=== PATIENT | male | born 1995 | race Caucasian/White ===

== ENCOUNTER 2019-05-28 00:41 | Emergency (ER) | payer SELFPAY ==
[2019-05-28] MEDS ORDERED: TETRACAINE HCL 0.5% 4ML OPTH ONE (00:59)
[2019-05-28] MEDS ORDERED: HYDROCODONE/APAP 10/325 TAB ONE (01:01)
[2019-05-28] MEDS ORDERED: TOBRAMYCIN SULF 0.3% OPTH OINT ONE (01:01)
[2019-05-28] MEDS ORDERED: FLUORESCEIN SODIUM 1 MG/WRAP ONE (01:01)
[2019-05-28] MEDS ORDERED: NEO/POLY/DEX OPTH 5 ML BOT ONE (01:03)
[2019-05-28] MEDS ORDERED: NEO/POLY/DEX OPTH 3.5 GM TUBE ONE (01:05)
[2019-05-28] MEDS ORDERED: CYCLOPENTOLATE 2% OPTH 2 ML ONE (01:28)
--- NOTE | 2019-05-28 01:48 | ER ---
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 States it feels as if he has sandpaper in them. Transition of care: patient was not received from another setting of care. Onset of symptoms was May 27, 2019. Risk Assessment: Do you want to hurt yourself or someone else? Patient reports no desire to harm self or others. Initial Sepsis Screen: Does the patient meet any 2 criteria? No. Patient's initial sepsis screen is negative. Does the patient have a suspected source of infection? No. Patient's initial sepsis screen is negative. Care prior to arrival: Medication(s) given: Tylenol, 1000 mg, at 0000. 00:45 Method Of Arrival: Ambulatory 00:45 Acuity: CARLOS 4 Triage Assessment: 00:56 General: Appears uncomfortable, slender, Behavior is calm, cooperative, appropriate for age. Pain: Complains of pain in right eye and left eye Pain currently is 10 out of 10 on a pain scale. Quality of pain is described as burning, Pain began today Is continuous. EENT: Eyes are tearing on right eye and left eye Sclera/Cornea are reddened in right eye and left eye Reports pain in right eye and left eye. Neuro: Level of Consciousness is awake, alert, obeys commands, Oriented to person, place, time, situation, Appropriate for age. Cardiovascular: No deficits noted. Respiratory: No deficits noted. GI: No deficits noted. : No deficits noted. Derm: Skin is pink, warm \T\ dry. Musculoskeletal: Circulation, motion, and sensation intact. Capillary refill < 3 seconds, Range of motion: intact in all extremities. Historical: - Allergies: 00:56 No Known Allergies; fc - Home Meds: 00:56 None [Active]; fc - PMHx: 00:56 None; fc - PSHx: 00:56 hip surg; fc - Immunization history:: Last tetanus immunization: unknown. - Social history:: Smoking status: Patient/guardian denies using tobacco, Patient/guardian denies using alcohol, street drugs. - Ebola Screening: : Patient negative for fever greater than or equal to 101.5 degrees Fahrenheit, and additional compatible Ebola Virus Disease symptoms Patient denies exposure to infectious person Patient denies travel to an Ebola-affected area in the 21 days before illness onset. - Family history:: not pertinent. Screenin:40 Abuse screen: Denies threats or abuse. Nutritional screening: No deficits noted. Tuberculosis screening: No symptoms or risk factors identified. Fall Risk None identified. Vital Signs: 00:40 BP 125 / 84; Pulse 58; Resp 18; Temp 97.6(O); Pulse Ox 100% on R/A; Weight 99.79 kg fc (R); Height 6 ft. 0 in. (182.88 cm) (R); Pain 10/10; 00:40 Body Mass Index 29.84 (99.79 kg, 182.88 cm) ED Course: 00:40 Arm band placed on Patient placed in an exam room, on a stretcher. fc 00:40 Patient has correct armband on for positive identification. Bed in low position. Call light in reach. Side rails up X 1. Pulse ox on. NIBP on. 00:40 No provider procedures requiring assistance completed. fc 00:44 Patient arrived in ED. cl3 00:53 Chavo Michael MD is Attending Physician. [facility] 00:55 Triage completed. 00:55 Chayito Ramsey RN is Primary Nurse. aa1 01:38 Tito Coombs MD is Referral Physician. florentino Administered Medications: 01:00 Drug: Tetracaine Drops 0.5 % 1 drops Route: Ophthalmic; Site: both eyes; aa1 01:04 Drug: [place] 10 mg-325 mg 1 tabs Route: PO; aa1 01:25 Drug: Maxitrol 1 application Route: Ophthalmic; Site: both eyes; aa1 01:30 Drug: Cyclogyl Drops (1 %) 1 drops Route: Ophthalmic; Site: both eyes; aa1 01:36 Not Given (Other Intervention Used): TobraDEX Drops (0.3 %-0.1 %) 2 drops Ophthalmic aa1 once Outcome: 01:37 Discharge ordered by MD. good 01:50 Patient left the ED. ch Signatures: Bailee Dimas RN RN Chayito Jacome RN RN aa1 Chavo Michael MD MD cha Chretien, Felicia, RN RN Lilly Villasenor cl3
--- NOTE | 2019-05-28 01:49 | EDPHYS ---
Physician Documentation [facility] Name: John Saldana Age: 23 yrs Sex: Male : 1995 Arrival Date: 05/28/2019 Time: 00:44 Bed 7 Private MD: ED Physician Chavo Michael HPI: 05/28 01:33 This 23 yrs old Male presents to ER via Ambulatory with complaints of Burn to florentino eyes. 01:33 The patient is experiencing blurred vision, pain, redness, The patient [facility]. Onset: The symptoms/episode began/occurred yesterday. Duration: the symptoms are intermittent. Aggravated by blinking, closing eye, light, opening eye, Alleviated by nothing. Associated signs and symptoms: Pertinent positives: None. Pertinent negatives: None. Patient does not utilize any form of vision correction. Severity of symptoms: At their worst the symptoms were mild moderate in the emergency department the symptoms are unchanged. The patient has not experienced similar symptoms in the past. Historical: - Allergies: 00:56 No Known Allergies; fc - Home Meds: 00:56 None [Active]; fc - PMHx: 00:56 None; fc - PSHx: 00:56 hip surg; fc - Immunization history:: Last tetanus immunization: unknown. - Social history:: Smoking status: Patient/guardian denies using tobacco, Patient/guardian denies using alcohol, street drugs. - Ebola Screening: : Patient negative for fever greater than or equal to 101.5 degrees Fahrenheit, and additional compatible Ebola Virus Disease symptoms Patient denies exposure to infectious person Patient denies travel to an Ebola-affected area in the 21 days before illness onset. - Family history:: not pertinent. ROS: 01:33 Constitutional: Negative for fever, chills, and weight loss, ENT: Negative for injury, florentino pain, and discharge, Neck: Negative for injury, pain, and swelling, Cardiovascular: Negative for chest pain, palpitations, and edema, Respiratory: Negative for shortness of breath, cough, wheezing, and pleuritic chest pain, Abdomen/GI: Negative for abdominal pain, nausea, vomiting, diarrhea, and constipation, Back: Negative for injury and pain, : Negative for injury, bleeding, discharge, and swelling, MS/Extremity: Negative for injury and deformity, Skin: Negative for injury, rash, and discoloration, Neuro: Negative for headache, weakness, numbness, tingling, and seizure. 01:33 Eyes: Positive for pain, photophobia, redness. Exam: 01:33 Constitutional: This is a well developed, well nourished patient who is awake, alert, florentino and in no acute distress. Head/Face: Normocephalic, atraumatic. ENT: Nares patent. No nasal discharge, no septal abnormalities noted. Tympanic membranes are normal and external auditory canals are clear. Oropharynx with no redness, swelling, or masses, exudates, or evidence of obstruction, uvula midline. Mucous membranes moist. Neck: Trachea midline, no thyromegaly or masses palpated, and no cervical lymphadenopathy. Supple, full range of motion without nuchal rigidity, or vertebral point tenderness. No Meningismus. Chest/axilla: Normal chest wall appearance and motion. Nontender with no deformity. No lesions are appreciated. Cardiovascular: Regular rate and rhythm with a normal S1 and S2. No gallops, murmurs, or rubs. Normal PMI, no JVD. No pulse deficits. Respiratory: Lungs have equal breath sounds bilaterally, clear to auscultation and percussion. No rales, rhonchi or wheezes noted. No increased work of breathing, no retractions or nasal flaring. Abdomen/GI: Soft, non-tender, with normal bowel sounds. No distension or tympany. No guarding or rebound. No evidence of tenderness throughout. Back: No spinal tenderness. No costovertebral tenderness. Full range of motion. Male : Normal genitalia with no discharge or lesions. Skin: Warm, dry with normal turgor. Normal color with no rashes, no lesions, and no evidence of cellulitis. MS/ Extremity: Pulses equal, no cyanosis. Neurovascular intact. Full, normal range of motion. Neuro: Awake and alert, GCS 15, oriented to person, place, time, and situation. Cranial nerves II-XII grossly intact. Motor strength 5/5 in all extremities. Sensory grossly intact. Cerebellar exam normal. Normal gait. Psych: Awake, alert, with orientation to person, place and time. Behavior, mood, and affect are within normal limits. 01:33 Eyes: Periorbital structures: appear normal, no acute changes, no abrasion, no cellulitis, no contusion, no ecchymosis, no erythema, no laceration, no swelling, Pupils: no acute changes, equal, round, and reactive to light and accomodation, Extraocular movements: intact throughout, Conjunctiva: injected, Corneas: are normal, no acute changes, Sclera: no appreciated abnormality, no acute changes, Anterior chamber: normal, no acute changes, Lids and lashes: appear normal, no acute changes. Vital Signs: 00:40 BP 125 / 84; Pulse 58; Resp 18; Temp 97.6(O); Pulse Ox 100% on R/A; Weight 99.79 kg fc (R); Height 6 ft. 0 in. (182.88 cm) (R); Pain 10/10; 00:40 Body Mass Index 29.84 (99.79 kg, 182.88 cm) MDM: 00:53 Patient medically screened. [facility] 05/28 00:55 Order name: Eye Tray; Complete Time: 01:36 [facility] 05/28 00:55 Order name: Fluoresene Opth strip; Complete Time: 01:04 [facility] Administered Medications: 01:00 Drug: Tetracaine Drops 0.5 % 1 drops Route: Ophthalmic; Site: both eyes; aa1 01:04 Drug: [place] 10 mg-325 mg 1 tabs Route: PO; aa1 01:25 Drug: Maxitrol 1 application Route: Ophthalmic; Site: both eyes; aa1 01:30 Drug: Cyclogyl Drops (1 %) 1 drops Route: Ophthalmic; Site: both eyes; aa1 01:36 Not Given (Other Intervention Used): TobraDEX Drops (0.3 %-0.1 %) 2 drops Ophthalmic aa1 once Disposition: 05/28/19 01:37 Discharged to Home. Impression: Keratitis. - Condition is Stable. - Discharge Instructions: Ultraviolet Keratitis, Ultraviolet Keratitis, [id number]. - Prescriptions for Maxitrol 3.5 mg/g- 10,000 unit/g-0.1 % Ophthalmic ointment - apply 1 inch ribbon by OPHTHALMIC route 4 times per day; 3.5 gram. Tylenol- Codeine #3 300-30 mg Oral Tablet - take 2 tablets by ORAL route every 6 hours As needed; 20 tablet. - Medication Reconciliation Form, Thank You Letter, Antibiotic Education, Prescription Opioid Use form. - Follow up: Private Physician; When: 2 - 3 days; Reason: Recheck today's complaints, Continuance of care, Re-evaluation by your physician. Follow up: Tito Coombs MD; When: Today; Reason: Recheck today's complaints, Continuance of care, Re-evaluation by your physician. - Problem is new. - Symptoms have improved. Signatures: Bailee Dimas RN RN Chayito Ramsey RN RN aa1 Chavo Michael MD MD cha Chretien, Felicia, RN RN Corrections: (The following items were deleted from the chart) 01:38 01:37 05/28/2019 01:37 Discharged to Home. Impression: Keratitis. Condition is Stable. florentino Forms are Medication Reconciliation Form, Thank You Letter, Antibiotic Education, Prescription Opioid Use. Follow up: Private Physician; When: 2 - 3 days; Reason: Recheck today's complaints, Continuance of care, Re-evaluation by your physician. Problem is new. Symptoms have improved. [facility] 01:50 01:38 05/28/2019 01:37 Discharged to Home. Impression: Keratitis. Condition is Stable. Forms are Medication Reconciliation Form, Thank You Letter, Antibiotic Education, Prescription Opioid Use. Follow up: Private Physician; When: 2 - 3 days; Reason: Recheck today's complaints, Continuance of care, Re-evaluation by your physician. Follow up: Tito Coombs; When: Today; Reason: Recheck today's complaints, Continuance of care, Re-evaluation by your physician. Problem is new. Symptoms have improved. [facility]
[2019-05-28] MEDS ORDERED: ONDANSETRON 4 MG/2 ML VIAL ONE (02:52)
== END 2019-05-28 01:50 | disposition home or self-care (01) ==
LOC: ER 00:41
DX: H16.9 Unspecified keratitis (principal)
CPT/HCPCS: 99283; J2405

== ENCOUNTER 2020-08-10 18:58 | Emergency (ER) | payer SELFPAY ==
[2020-08-10] MEDS ORDERED: LIDOCAINE 1% W/EPI 1:100,000 MDV 50 ML VIAL ONE (19:38)
[2020-08-10] MEDS ORDERED: HYDROCODONE/APAP 10/325 TAB ONE (19:38)
[2020-08-10] MEDS ORDERED: DIAZEPAM 5 MG TABLET ONE (19:38)
--- NOTE | 2020-08-10 20:14 | ER ---
Nurse's Notes [facility] Name: John Saldana Age: 24 yrs Sex: Male : 1995 Arrival Date: 08/10/2020 Time: 19:01 Bed 23 Private MD: Diagnosis: Cutaneous abscess of back [any part, except buttock] Presentation: 08/10 19:03 Chief complaint: Patient states: I have a bump on my back that start oozing 2 days ago. jb4 It has progressively gotten worse, now it is getting larger, it is hot to the touch and oozing. 19:03 Coronavirus screen: Client denies travel out of the [place] in the last 14 days. At this jb4 time, the client does not indicate any symptoms associated with coronavirus-19. Ebola Screen: No symptoms or risks identified at this time. Initial Sepsis Screen: Does the patient meet any 2 criteria? No. Patient's initial sepsis screen is negative. Does the patient have a suspected source of infection? No. Patient's initial sepsis screen is negative. Risk Assessment: Do you want to hurt yourself or someone else? Patient reports no desire to harm self or others. Onset of symptoms was August 08, 2020. Transition of care: patient was not received from another setting of care. 19:03 Method Of Arrival: Ambulatory jb4 19:03 Acuity: CARLOS 3 jb4 Historical: - Allergies: 19:03 No Known Allergies; jb4 - Home Meds: 19:03 None [Active]; jb4 - PMHx: 19:03 None; jb4 - PSHx: 19:03 Hip; jb4 - Immunization history:: Adult Immunizations up to date. - Social history:: Smoking status: Patient denies any tobacco usage or history of. Patient/guardian denies using alcohol, street drugs. Screenin:03 Abuse screen: Denies threats or abuse. Nutritional screening: No deficits noted. jb4 Tuberculosis screening: No symptoms or risk factors identified. Fall Risk None identified. Assessment: 19:03 General: Appears in no apparent distress. uncomfortable, Behavior is calm, cooperative, jb4 appropriate for age. Pain: Complains of pain in right scapular area Pain does not radiate. Pain currently is 7 out of 10 on a pain scale. Quality of pain is described as dull, tender, Pain began 2-3 days ago. Neuro: Level of Consciousness is awake, alert, obeys commands, Oriented to person, place, time, situation. Cardiovascular: Patient's skin is warm and dry. Respiratory: Airway is patent Respiratory effort is even, unlabored, Respiratory pattern is regular, symmetrical. GI: No signs and/or symptoms were reported involving the gastrointestinal system. : No signs and/or symptoms were reported regarding the genitourinary system. EENT: No signs and/or symptoms were reported regarding the EENT system. Derm: Skin is intact, Skin is pink, warm \T\ dry. Abscess located on right scapular area is golf ball sized, has no drainage, is hot to touch, is red, is raised. Musculoskeletal: Circulation, motion, and sensation intact. Range of motion: intact in all extremities. 19:44 Reassessment: Provider at the bedside explaining I\T\D procedure, Provider administering jb4 Lidocaine. 20:29 Reassessment: Patient appears in no apparent distress at this time. Patient and/or jb4 family updated on plan of care and expected duration. Pain level reassessed. Patient is alert, oriented x 3, equal unlabored respirations, skin warm/dry/pink. Patient states feeling better. Vital Signs: 19:03 BP 135 / 73; Pulse 106; Resp 16; Temp 100.5(O); Pulse Ox 95% on R/A; Weight 117.93 kg jb4 (R); Height 6 ft. 0 in. (182.88 cm) (R); Pain 7/10; 20:29 BP 136 / 82; Pulse 86; Resp 16; Pulse Ox 98% on R/A; jb4 19:03 Body Mass Index 35.26 (117.93 kg, 182.88 cm) jb4 ED Course: 19:01 Patient arrived in ED. rg4 19:03 Erick Rdz, SOUTH is Primary Nurse. jb4 19:03 Benja Wolfe PA is PHCP. jmm 19:03 Arm band placed on right wrist. jb4 19:03 Patient has correct armband on for positive identification. Placed in gown. Bed in low jb4 position. Call light in reach. Side rails up X 1. Pulse ox on. NIBP on. 19:04 Mahesh Yarbrough MD is Attending Physician. [facility] 19:18 Triage completed. jb4 19:47 Assist provider with I \T\ D: of an abscess on Set up I\T\D tray. Performed by Benja mae 4 [facility]ION. 20:29 Patient did not have IV access during this emergency room visit. jb4 Administered Medications: 19:28 Drug: Valium 5 mg Route: PO; jb4 20:14 Follow up: Response: No adverse reaction; Pain is decreased jb4 19:29 Drug: [place] 10 mg-325 mg 1 tabs Route: PO; jb4 20:14 Follow up: Response: No adverse reaction; Pain is decreased; RASS: Alert and Calm (0) jb4 19:45 Drug: Lidocaine-Epinephrine -1%: (1:100,000) 20 ml {Note: Administered by ER jb4 provider..} Volume: 20 ml; Route: Infiltration; 20:14 Follow up: Response: No adverse reaction jb4 20:28 Drug: Bactrim (160 mg-800 mg (DS) 1 tablet Route: PO; jb4 20:28 Follow up: Response: Medication administered at discharge. jb4 20:28 Drug: Doxycycline 100 mg Route: PO; jb4 20:29 Follow up: Response: Medication administered at discharge. jb4 Outcome: 20:13 Discharge ordered by . [facility] 20:29 Discharged to home ambulatory, with friend. jb4 20:29 Condition: stable 20:29 Discharge instructions given to patient, Instructed on discharge instructions, follow up and referral plans. medication usage, Demonstrated understanding of instructions, follow-up care, medications, Prescriptions given X 3. 20:30 Patient left the ED. jb4 Signatures: Benja Wolfe PA PA jmm Garcia, Rubi rg4 Erick Rdz, RN RN jb4
--- NOTE | 2020-08-10 20:14 | EDPHYS ---
Physician Documentation [facility] Name: John Saldana Age: 24 yrs Sex: Male : 1995 Arrival Date: 08/10/2020 Time: 19:01 Bed 23 Private MD: ED Physician Mahesh Yarbrough HPI: 08/10 19:19 This 24 yrs old Male presents to ER via Ambulatory with complaints of Abscess.jmm 19:19 The patient presents with an abscess of the back. Onset: The symptoms/episode jmm began/occurred gradually. Possible cause(s): unknown. Associated signs and symptoms: Pertinent positives: swelling, Pertinent negatives: fever. Modifying factors: the symptoms are alleviated by nothing, the symptoms are aggravated by nothing. This is a 24 year old male with no chronic medical conditions that presents to the ED with pain and swelling to his back. Patient states the area has been swollen for months, but recently become painful. Denies fever. . Historical: - Allergies: 19:03 No Known Allergies; jb4 - Home Meds: 19:03 None [Active]; jb4 - PMHx: 19:03 None; jb4 - PSHx: 19:03 Hip; jb4 - Immunization history:: Adult Immunizations up to date. - Social history:: Smoking status: Patient denies any tobacco usage or history of. Patient/guardian denies using alcohol, street drugs. ROS: 19:19 Constitutional: Negative for fever, chills, and weight loss, Cardiovascular: Negative jmm for chest pain, palpitations, and edema, Respiratory: Negative for shortness of breath, cough, wheezing, and pleuritic chest pain. 19:19 Skin: Positive for swelling. 19:19 All other systems are negative. Exam: 19:19 Constitutional: This is a well developed, well nourished patient who is awake, alert, jmm and in no acute distress. Head/Face: atraumatic. Eyes: EOMI, no conjunctival erythema appreciated ENT: Moist Mucus Membranes Neck: Trachea midline, Supple Chest/axilla: Normal chest wall appearance and motion. Cardiovascular: Regular rate and rhythm. No edema appreciated Respiratory: Normal respirations, no respiratory distress appreciated Abdomen/GI: Non distended, soft 19:19 Back: swelling, fluctuant lesion noted to the upper back, ttp, erythema noted. 19:19 Musculoskeletal/extremity: ROM: intact in all extremities. 19:19 Skin: Appearance: Color: normal in color, abscess, that is moderate sized, of the back, with fluctuance, with induration, with pointing. 19:19 Neuro: Orientation: is normal, Mentation: is normal, Memory: is normal. 19:19 Psych: Behavior/mood is pleasant, cooperative. Vital Signs: 19:03 BP 135 / 73; Pulse 106; Resp 16; Temp 100.5(O); Pulse Ox 95% on R/A; Weight 117.93 kg jb4 (R); Height 6 ft. 0 in. (182.88 cm) (R); Pain 7/10; 20:29 BP 136 / 82; Pulse 86; Resp 16; Pulse Ox 98% on R/A; jb4 19:03 Body Mass Index 35.26 (117.93 kg, 182.88 cm) jb4 Procedures: 20:07 I \T\ D: Incision and drainage was performed for an abscess of the right scapular area [facility] Prepped with Betadine, Anesthetized with 10 ml's 1% Lidocaine w/ Epi. Incised with #11 blade. Drained large amount purulent fluid. Loculations removed. Abscess cavity explored. Packed with iodoform gauze, Dressing: sterile 4x4 gauze, the patient tolerated the procedure well. MDM: 19:19 Patient medically screened. [facility] 20:07 Data reviewed: vital signs, nurses notes. [facility] 20:08 Counseling: I had a detailed discussion with the patient and/or guardian regarding: the [facility] historical points, exam findings, and any diagnostic results supporting the discharge/admit diagnosis, the need for outpatient follow up, to return to the emergency department if symptoms worsen or persist or if there are any questions or concerns that arise at home. ED course: Patient is alert and non toxic in appearance in the ED. Abscess drained. Will follow up with gen surgery for reevaluation. Patient is otherwise given strict return precautions. patient understood and agrees with the plan of care. . 08/10 19:29 Order name: I\T\D Setup; Complete Time: 19:29 jb4 Administered Medications: 19:28 Drug: Valium 5 mg Route: PO; [facility] 20:14 Follow up: Response: No adverse reaction; Pain is decreased jb4 19:29 Drug: [place] 10 mg-325 mg 1 tabs Route: PO; jb4 20:14 Follow up: Response: No adverse reaction; Pain is decreased; RASS: Alert and Calm (0) jb4 19:45 Drug: Lidocaine-Epinephrine -1%: (1:100,000) 20 ml {Note: Administered by ER jb4 provider..} Volume: 20 ml; Route: Infiltration; 20:14 Follow up: Response: No adverse reaction jb4 20:28 Drug: Bactrim (160 mg-800 mg (DS) 1 tablet Route: PO; jb4 20:28 Follow up: Response: Medication administered at discharge. jb4 20:28 Drug: Doxycycline 100 mg Route: PO; jb4 20:29 Follow up: Response: Medication administered at discharge. jb4 Disposition: 08/11 07:19 Co-signature as Attending Physician, Mahesh Yarbrough MD I agree with the assessment and kdr plan of care. Disposition: 08/10/20 20:13 Discharged to Home. Impression: Cutaneous abscess of back [any part, except buttock]. - Condition is Stable. - Discharge Instructions: Skin Abscess, Incision and Drainage. - Prescriptions for Doxycycline Hyclate 100 mg Oral Tablet - take 1 tablet by ORAL route every 12 hours; 20 tablet. Bactrim DS 800- 160 mg Oral Tablet - take 1 tablet by ORAL route every 12 hours for 10 days; 20 tablet. Ultracet 37.5- 325 mg Oral Tablet - take 1 tablet by ORAL route every 6 hours - for up to 5 days; do not exceed 8 tablets per day.; 20 tablet. - Medication Reconciliation Form, Thank You Letter, Antibiotic Education, Prescription Opioid Use form. - Follow up: Private Physician; When: 2 - 3 days; Reason: Recheck today's complaints, Re-evaluation by your physician. Signatures: Mahesh Yarrbough MD MD kdr Mickail, Joel, PA PA jmm Bryson, James, RN RN jb4 Corrections: (The following items were deleted from the chart) 08/10 20:30 20:13 08/10/2020 20:13 Discharged to Home. Impression: Cutaneous abscess of back [any jb4 part, except buttock]. Condition is Stable. Forms are Medication Reconciliation Form, Thank You Letter, Antibiotic Education, Prescription Opioid Use. Follow up: Private Physician; When: 2 - 3 days; Reason: Recheck today's complaints, Re-evaluation by your physician. maurizio
[2020-08-10] MEDS ORDERED: SMZ./TMP. 800/160 MG TABLET ONE (20:29)
[2020-08-10] MEDS ORDERED: DOXYCYCLINE 100 MG CAP PO ONE (20:29)
[2020-08-15 21:09] VITALS: BP 135/73; TEMP 100.5; O2SAT 95
== END 2020-08-10 20:30 | disposition home or self-care (01) ==
LOC: ER 18:58
PROC: 0J970ZZ Drainage of Back Subcutaneous Tissue and Fascia, Open Approach (ICD-10-PCS; principal; 2020-08-10)
DX: L02.212 Cutaneous abscess of back [any part, except buttock and flank] (principal)
CPT/HCPCS: 99284